=== PATIENT | female | born 1985 | race Caucasian/White ===

== ENCOUNTER 2022-09-19 11:16 | Outpatient (CLI) | payer OTHER, SELFPAY | END 2022-09-19 11:17 | disposition home or self-care (01) | LOC: NFLDREF 09-20 19:50 | PROVIDERS: Visit Provider Physician Assistant | DX: R35.0 Frequency of micturition (principal); R10.2 Pelvic and perineal pain | CPT/HCPCS: 87086 ==

== ENCOUNTER 2022-09-27 13:27 | Outpatient (CLI) | payer MEDICAID, SELFPAY ==
--- NOTE | 2022-09-27 13:00 | CRLHL7_ITS ---
For Patients: As a result of the Century Cures Act, medical imaging exams and procedure reports are released immediately into your electronic medical record. You may view this report before your referring provider. If you have questions, please contact your health care provider. INDICATION: Pelvic and perineal pain TECHNIQUE: Ultrasound pelvis transabdominal and transvaginal for better assessment or to better visualize the endometrium. Real time sonographic images with Spectral and color Doppler imaging of the ovaries were obtained. COMPARISON: None FINDINGS: Uterus: 7.3 centimeter x 3.5 centimeter x 4.6 on normal echotexture of the myometrium. No masses. Endometrium: IUD present endometrial canal. The endometrium is not well seen. Right ovary: 3.1 centimeter x 1.6 centimeter x 1.7 centimeter no ovarian or adnexal masses. Normal arterial and venous blood flow. Left ovary: 2.7 centimeter x 2.6 centimeter x 2.9 centimeter. No ovarian or adnexal masses. Normal arterial and venous blood flow. Cul-de-sac: No significant free fluid. IMPRESSION: IUD present in the endometrial canal. Grossly normal ultrasound. Dictated by Yovani Nolen MD @ 09/27/2022 3:56:24 PM (Electronically Signed)
== END 2022-09-27 13:28 | disposition home or self-care (01) ==
PROVIDERS: Visit Provider Physician Assistant
DX: R10.2 Pelvic and perineal pain (principal)
CPT/HCPCS: 76830; 76856; 93976

== ENCOUNTER 2022-11-20 12:02 | Outpatient (CLI) | payer MEDICAID, SELFPAY | END 2022-11-20 12:03 | disposition home or self-care (01) | LOC: NFLDREF 11-23 11:41 | PROVIDERS: PCP Physician Assistant; Referring Provider Physician Assistant; Visit Provider Physician Assistant | DX: R35.0 Frequency of micturition (principal); N39.0 Urinary tract infection, site not specified | CPT/HCPCS: 87086 ==

== ENCOUNTER 2023-01-24 15:10 | Outpatient (CLI) | payer MEDICAID, SELFPAY | END 2023-01-24 15:11 | disposition home or self-care (01) | LOC: LKVREF 15:12 | PROVIDERS: PCP Physician Assistant; Visit Provider Family Medicine | DX: R53.83 Other fatigue (principal) | CPT/HCPCS: 80053; 84443 ==